=== PATIENT | female | born 1950 | race Caucasian/White ===

== ENCOUNTER → 2018-03-11 | Outpatient (CLI) | payer MEDICARE ==
[~2018-03-11] MED LIST: CATHETER FLUSH 10 ML SYR IV PRN; REGADENOSON 0.4 MG/5 ML SYR (LEXISCAN) IV ONE
[2018-03-11 09:08] VITALS: BP 144/78
--- NOTE | 2018-03-14 22:39 | STRESS TEST ---
DATE OF SERVICE: 03/11/2018 RESTING AND POST REGADENOSON TECHNETIUM 99M TETROFOSMIN SPECT CT IMAGING CLINICAL DIAGNOSES: Paroxysmal atrial fibrillation and shortness of breath. ORDERING PHYSICIAN: Dr. Little. PRIMARY PHYSICIAN: Dr. Yousif. Baseline images were carried out after injection of 10.95 mCi of technetium-99m Tetrofosmin (followed by 0.4 mg regadenoson and 28.6 mCi of technetium-99m Tetrofosmin for stress imaging. The electrocardiogram showed sinus rhythm with nonspecific ST abnormality throughout the study. There appeared to be episodes of paroxysmal atrial fibrillation versus multifocal atrial tachycardia during the study. Review of images at rest and following stress does not indicate any significant perfusion defects consistent with significant myocardial ischemia or infarction. Gated images show normal global left ventricular systolic function with normal regional wall motion. Left ventricular ejection fraction is calculated to be 65%. Left ventricular end diastolic volume is 56 mL. TID is absent (1.05). CONCLUSIONS: 1. No evidence of any significant myocardial ischemia or infarction. 2. Normal regional wall motion. 3. Normal global left ventricular systolic function with a calculated ejection fraction 65%. 4. Episodes of atrial fibrillation and/or multifocal atrial tachycardia with a rapid ventricular response during the study. Job ID: [id number] DocumentID: [id number] Dictated Date: 03/14/2018 17:20:13 [employer]vee Superintendent Date: 03/14/2018 22:39:12 Dictated By: MARY ALICE LITTLE MD, MA, FACP, FACC,
== END ==
LOC: CARD 07:17
PROVIDERS: ATTEND Internal Medicine Cardiovascular Disease
DX: I48.0 Paroxysmal atrial fibrillation (principal); R06.02 Shortness of breath
CPT/HCPCS: 78452; 93017

== ENCOUNTER → 2018-03-23 | Outpatient (CLI) | payer MEDICARE | LOC: CARD 13:39 | PROVIDERS: ATTEND Internal Medicine Cardiovascular Disease | DX: I48.0 Paroxysmal atrial fibrillation (principal); R06.02 Shortness of breath; I07.1 Rheumatic tricuspid insufficiency | CPT/HCPCS: 93306 ==

== ENCOUNTER → 2019-03-26 | Outpatient (CLI) | payer MEDICARE | LOC: LAB 15:18 | PROVIDERS: ATTEND Nurse Practitioner Family | DX: R05 Cough (principal) | CPT/HCPCS: 87070; 87077; 87185; 87205 ==

== ENCOUNTER → 2019-05-05 | Outpatient (CLI) | payer MEDICARE | LOC: LAB 14:33 | PROVIDERS: ATTEND Nurse Practitioner Family | DX: R05 Cough (principal) ==

== ENCOUNTER 2021-06-03 16:32 | Emergency (ER) | payer MEDICARE ==
[~2021-06-03] VITALS: Ht 165 cm; Wt 56.8 kg
[2021-06-03] MEDS ORDERED: dilTIAZem DRIP PRE-MIX 125 ML IV ONE (16:50)
[2021-06-03] MEDS ORDERED: ASPIRIN 81 MG CHEW (CHILDREN'S ASA) PO ONE (17:00)
[2021-06-03] MEDS ORDERED: dilTIAZem DRIP PRE-MIX 125 ML IV SCH (17:00)
[2021-06-03 17:01] LABS: BASOPHILS % (AUTO) 0 % (0-10); EOSINOPHILS % (AUTO) 0 % (0-10); HEMATOCRIT 43 % (35-52); HEMOGLOBIN 14.5 g/dL (11.5-16.0); LYMPHOCYTES # (AUTO) 1.3 10^3/uL (1.0-4.0); LYMPHOCYTES % (AUTO) 15 % (12-44); MEAN CORPUSCULAR HEMOGLOBIN 30 pg (25-34); MEAN CORPUSCULAR HGB CONC 34 g/dL (32-36); MEAN CORPUSCULAR VOLUME 90 fL (80-99); MEAN PLATELET VOLUME 10.2 fL (9.0-12.2); MONOCYTES # (AUTO) 0.6 10^3/uL (0.0-1.0); MONOCYTES % (AUTO) 7 % (0-12); NEUTROPHILS # (AUTO) 6.7 10^3/uL (1.8-7.8); NEUTROPHILS % (AUTO) 77 % (42-75); PLATELET COUNT 290 10^3/uL (130-400); WHITE BLOOD COUNT 8.6 10^3/uL (4.3-11.0)
[2021-06-03 17:13] LABS: ALBUMIN 4.4 GM/DL (3.2-4.5); POTASSIUM 3.9 MMOL/L (3.6-5.0)
[2021-06-03 17:15] LABS: CALCIUM 9.2 MG/DL (8.5-10.1)
[2021-06-03 17:16] LABS: TOTAL PROTEIN 7.2 GM/DL (6.4-8.2)
[2021-06-03 17:17] LABS: INR 1.2 (0.8-1.4); PROTHROMBIN TIME PATIENT 15.4 SEC (12.2-14.7)
[2021-06-03 17:18] LABS: BILIRUBIN,TOTAL 1.1 MG/DL (0.1-1.0)
[2021-06-03 17:19] LABS: CREATININE SERUM 0.77 MG/DL (0.60-1.30)
[2021-06-03 17:22] LABS: MAGNESIUM 2.1 MG/DL (1.6-2.4)
--- NOTE | 2021-06-03 17:29 | ED Chest Pain ---
General Chief Complaint: Cardiac/General Problems Stated Complaint: AFIB Source: patient Exam Limitations: no limitations History of Present Illness Date Seen by Provider: Jun 03, 2021 Time Seen by Provider: 17:27 Initial Comments To ER with John sutton. She is on Toprol and Eliquis for known atrial fibrillation. Her heart rate was much higher today after working outside.She denies chest pain or shortness of breath but does report palpitations. Timing/Duration: changing over time Severity/Quality: moderate Location: central Radiation: no radiation Activities at Onset: none ASA po SLIMER: No NTG SL SLIMER: No Allergies and Home Medications Allergies Coded Allergies: No Known Drug Allergies (Unverified , 06/03/21) Home Medications Diltiazem HCl 240 Mg Cap.er.24h, 240 MG PO DAILY Prescribed by: PATY DONNELLY on 06/03/212047 Patient Home Medication List Home Medication List Reviewed: Yes Review of Systems Review of Systems Constitutional: see HPI EENTM: No Symptoms Reported Respiratory: No Symptoms Reported Cardiovascular: See HPI; Denies Chest Pain; Palpitations Gastrointestinal: No Symptoms Reported Genitourinary: No Symptoms Reported Musculoskeletal: no symptoms reported Skin: no symptoms reported Psychiatric/Neurological: No Symptoms Reported Endocrine: No Symptoms Reported Hematologic/Lymphatic: No Symptoms Reported Physical Exam Vital Signs Vital Signs - First Documented 06/03/21 16:35 Pulse 163 Resp 18 B/P (MAP) 128/84 (99) Pulse Ox 95 O2 Delivery Room Air Capillary Refill : Height, Weight, BMI Height: '" Weight: lbs. oz. kg; BMI Method: General Appearance: No Apparent Distress, WD/WN, Thin, Other (Alert and oriented very pleasant on Cardizem drip at 10 mg/h heart rate of 120 blood p ressure 102/77) HEENT: PERRL/EOMI, TMs Normal Neck: Full Range of Motion, Normal Inspection Respiratory: No Accessory Muscle Use, No Respiratory Distress Cardiovascular: Normal Peripheral Pulses, Irregularly Irregular, Tachycardia Gastrointestinal: Non Tender, Soft Extremity: Normal Capillary Refill, Normal Inspection Neurologic/Psychiatric: Alert, Oriented x3 Skin: Normal Color, Warm/Dry Progress/Results/Core Measures Results/Orders Lab Results Laboratory Tests Test 06/03/21 16:45 Range/Units White Blood Count 8.6 4.3-11.0 10^3/uL Red Blood Count 4.80 3.80-5.11 10^6/uL Hemoglobin 14.5 11.5-16.0 g/dL Hematocrit 43 35-52 % Mean Corpuscular Volume 90 80-99 fL Mean Corpuscular Hemoglobin 30 25-34 pg Mean Corpuscular Hemoglobin Concent 34 32-36 g/dL Red Cell Distribution Width 12.6 10.0-14.5 % Platelet Count 290 130-400 10^3/uL Mean Platelet Volume 10.2 9.0-12.2 fL Immature Granulocyte % (Auto) 0 % Neutrophils (%) (Auto) 77 H 42-75 % Lymphocytes (%) (Auto) 15 12-44 % Monocytes (%) (Auto) 7 0-12 % Eosinophils (%) (Auto) 0 0-10 % Basophils (%) (Auto) 0 0-10 % Neutrophils # (Auto) 6.7 1.8-7.8 10^3/uL Lymphocytes # (Auto) 1.3 1.0-4.0 10^3/uL Monocytes # (Auto) 0.6 0.0-1.0 10^3/uL Eosinophils # (Auto) 0.0 0.0-0.3 10^3/uL Basophils # (Auto) 0.0 0.0-0.1 10^3/uL Immature Granulocyte # (Auto) 0.0 0.0-0.1 10^3/uL Prothrombin Time 15.4 H 12.2-14.7 SEC INR Comment 1.2 0.8-1.4 Activated Partial Thromboplast Time 34 24-35 SEC Sodium Level 143 135-145 MMOL/L Potassium Level 3.9 3.6-5.0 MMOL/L Chloride Level 108 H 98-107 MMOL/L Carbon Dioxide Level 21 21-32 MMOL/L Anion Gap 14 5-14 MMOL/L Blood Urea Nitrogen 20 H 7-18 MG/DL Creatinine 0.77 0.60-1.30 MG/DL Estimat Glomerular Filtration Rate 74 BUN/Creatinine Ratio 26 Glucose Level 123 H 70-105 MG/DL Calcium Level 9.2 8.5-10.1 MG/DL Corrected Calcium 8.9 8.5-10.1 MG/DL Magnesium Level 2.1 1.6-2.4 MG/DL Total Bilirubin 1.1 H 0.1-1.0 MG/DL Aspartate Amino Transf (AST/SGOT) 21 5-34 U/L Alanine Aminotransferase (ALT/SGPT) 18 0-55 U/L Alkaline Phosphatase 73 40-136 U/L Myoglobin 72.8 10.0-92.0 NG/ML Troponin I < 0.028 <0.028 NG/ML B-Type Natriuretic Peptide 145.6 H <100.0 PG/ML Total Protein 7.2 6.4-8.2 GM/DL Albumin 4.4 3.2-4.5 GM/DL My Orders Orders - PATY DONNELLY APRN Cbc With Automated Diff (06/03/21 16:49) Magnesium (06/03/21 16:49) Chest 1 View, Ap/Pa Only (06/03/21 16:49) Ekg Tracing (06/03/21 16:49) Comprehensive Metabolic Panel (06/03/21 16:49) Myoglobin Serum (06/03/21 16:49) Protime With Inr (06/03/21 16:49) Partial Thromboplastin Time (06/03/21 16:49) O2 (06/03/21 16:49) Monitor-Rhythm Ecg Trace Only (06/03/21 16:49) Lipid Panel (06/04/21 06:00) Ed Iv/Invasive Line Start (06/03/21 16:49) BNP (06/03/21 16:49) Troponin I (06/03/21 16:49) Aspirin Chewable Tablet (Baby Aspirin Ch (06/03/21 17:00) Diltiazem Drip Pre-Mix (Cardizem Drip Pr (06/03/21 17:00) Diltiazem Injection (Cardizem Injection) (06/03/21 17:00) Diltiazem Drip Pre-Mix (Cardizem Drip Pr (06/03/21 16:50) Diltiazem Injection (Cardizem Injection) (06/03/21 16:50) Lactated Ringers (Lr 1000 Ml Iv Solution (06/03/21 17:30) Diltiazem Cd 24 Hr Capsule (Cardizem Cd (06/03/21 19:15) Metoprolol Tartrate Injection (Lopressor (06/03/21 19:30) Ekg Tracing (06/03/21 21:05) Medications Given in ED Current Medications Medications Dose Ordered Sig/Rocco Route Start Time Stop Time Status Last Admin Dose Admin Aspirin 81 mg ONCE ONCE PO 06/03/21 17:00 06/03/21 17:01 DC 06/03/21 17:33 324 MG Diltiazem HCl 10 mg ONCE ONCE IVP 06/03/21 17:00 06/03/21 17:01 DC 06/03/21 16:50 10 MG Diltiazem HCl 240 mg ONCE ONCE PO 06/03/21 19:15 06/03/21 19:16 DC 06/03/21 19:29 240 MG Metoprolol Tartrate 5 mg ONCE ONCE IV 06/03/21 19:30 06/03/21 19:31 DC 06/03/21 19:39 5 MG Vital Signs/I&O 06/03/21 06/03/21 06/03/21 16:35 17:35 18:06 Pulse 163 120 116 Resp 18 18 18 B/P (MAP) 128/84 (99) 112/69 (83) 108/65 (79) Pulse Ox 95 97 98 O2 Delivery Room Air Room Air Departure Communication (Admissions) 1907-Cardizem drip is at 15 mg an hour. Currently her heart rate is down to 96 though it has just slowed to this rate. She has been on the drip for over an hour and the rate is consistently in the 130s. I spoke with Dr. Vann. We can give digoxin 0.25 mg now and then repeat in 2 hours x 2. Her home dose of Toprol is 25 mg. We could alternatively switch her to Cardizem 240 mg orally now then discontinue the drip in 1 hour and if her rate is still controlled then go home. 1954-heart rate in the 50s still atrial fibrillation. Cardizem drip turned off. 2048-EKG at this time shows a rate of 69 sinus. 114/69. Impression Primary Impression: Atrial fibrillation with rapid ventricular response Disposition: HOME, SELF-CARE Condition: Improved Departure-Patient Inst. Decision time for Depature: 19:55 Patient Instructions: Atrial Fibrillation Add. Discharge Instructions: Call Dr. Vann's office tomorrow to make an appointment to be seen for follow- up. All discharge instructions reviewed with patient and/or family. Voiced understanding. Scripts Diltiazem HCl (Cardizem Cd) 240 Mg Cap.er.24h 240 MG PO DAILY, #10 CAP . Prov: PATY DONNELLY MACHINE DEBURRER 06/03/21 Copy Copies To 1: MARY ALICE MORSE MD FACP FACC CCDS PATY DONNELLY APRN Jun 03, 2021 17:29
[2021-06-03] MEDS ORDERED: LACTATED RINGERS 1,000 ML IV SCH (17:30)
--- NOTE | 2021-06-03 18:31 | Diagnostic Imaging Report ---
EXAMINATION: Chest radiograph, portable AP view. DATE: 06/03/2021 6:09 PM INDICATION: 70-year-old female, chest pain. COMPARISON: Chest radiographs December 11, 2013. FINDINGS: Heart size and mediastinal contours are unchanged. There is no identified pneumothorax. There is no large pleural effusion. There is no identified interval focal airspace consolidation. IMPRESSION: No identified acute cardiopulmonary abnormality. Dictated by: Dictated on workstation # [id number]
[2021-06-03] MEDS ORDERED: meTOprolol 5 MG/5 ML (LOPRESSOR) VIAL IV ONE (19:30)
[2021-06-03] MEDS ORDERED: DILT240C86 PO ×2 (20:48→21:38)
[2021-06-03 21:38] VITALS: BP 111/75
== END 2021-06-03 21:43 | disposition home or self-care (01) ==
LOC: ER 16:36 → MERGE 16:36 → ER 21:43
DX: I48.91 Unspecified atrial fibrillation (principal); Z79.01 Long term (current) use of anticoagulants; Z79.899 Other long term (current) drug therapy
CPT/HCPCS: 36415; 71045; 80053; 83735; 83874; 83880; 84484; 85025; 85610; 85730; 93005; 93041; 96361; 96365; 96366; 96375